=== PATIENT | male | born 1995 | race Caucasian/White ===

== ENCOUNTER 2020-04-26 01:10 | Emergency (ER) | payer OTHER ==
[~2020-04-26] VITALS: Ht 170.2 cm; Wt 92.6 kg
[2020-04-26 01:22] VITALS: Ht 170.2 cm; Wt 92.6 kg
[2020-04-26 02:05] LABS: BASOPHIL % 0.6 % (0.2-1.5); PLATELET COUNT 265 x10^3mcL (152-348); RED CELL DISTRIBUTION WIDTH 12.6 % (12.1-16.2)
[2020-04-26 02:13] LABS: CALCIUM 9.4 mg/dL (8.5-10.1); CARBON DIOXIDE 29.5 mmol/L (21-32); CHLORIDE SERUM 106 mmol/L (98-107); CREATININE SERUM 1.1 mg/dL (0.7-1.3); GFR1 > 60 mL/min; GLUCOSE SERUM 98 mg/dL (74-106); POTASSIUM SERUM 4.1 mmol/L (3.5-5.1); SODIUM SERUM 142 mmol/L (136-145)
[2020-04-26 02:18] LABS: ALBUMIN 4.2 g/dL (3.4-5.0); ALKALINE PHOSPHATASE 94 U/L (46-116); ALT/SGPT 36 U/L (16-63); AST/SGOT 27 U/L (15-37); BILIRUBIN TOTAL 0.54 mg/dL (0.20-1.00); LIPASE 101 IU/L (73-393); TOTAL PROTEIN, SERUM 7.9 g/dL (6.4-8.2)
[2020-04-26 03:42] VITALS: BP 120/49
== END 2020-04-26 03:42 | disposition home or self-care (01) ==
LOC: ED 01:10
PROVIDERS: Emergency Medicine
DX: K80.50 Calculus of bile duct without cholangitis or cholecystitis without obstruction (principal); J45.909 Unspecified asthma, uncomplicated
CPT/HCPCS: J1885; J2270; J2405; J7030